=== PATIENT | male | born 1985 | race African-American/Black ===

== ENCOUNTER 2021-08-12 14:56 | Emergency (ER) | payer MEDICAID ==
[~2021-08-12] VITALS: Ht 170.2 cm; Wt 62.0 kg
[2021-08-12] MEDS ORDERED: HYDROCODONE/ACETAMINOPHEN 5/325MG TABLET PO ONE (15:45)
[2021-08-12] MEDS ORDERED: DIAZEPAM 5 MG TABLET PO NR (22:15)
[2021-08-12] MEDS ORDERED: MORPHINE SULFATE 2 MG/ML CPJ (NOT FOR IM USE) IV NR (22:15)
[2021-08-13] MEDS ORDERED: MORPHINE SULFATE 4 MG/ML CPJ (NOT FOR IM USE) IV ONE (06:00)
[2021-08-13 12:03] LABS: HEMATOCRIT. 35.5 % (42.0-52.0); HEMOGLOBIN. 11.9 g/dL (14.0-18.0); MEAN CORPUSCULAR HEMOGLOBIN 36.4 pg (28.0-32.0); MEAN CORPUSCULAR VOLUME 108.6 fL (80.0-94.0); MEAN PLATELET VOLUME 7.4 fl (7.4-10.4); PLATELET 269 x1000/uL (130-400); RED BLOOD CELL COUNT 3.27 mill/uL (4.7-6.1); RED CELL DISTRIBUTION WIDTH 16.2 % (11.6-14.6)
[2021-08-13 12:09] LABS: CHLORIDE 104 mEq/L (98-107)
[2021-08-13 13:02] LABS: PLATELET ESTIMATE NORMAL
[2021-08-13 13:12] VITALS: BP 144/99
== END 2021-08-13 13:37 | disposition short-term general hospital (02) ==
LOC: ER 14:56
DX: S02.69XA Fracture of mandible of other specified site, initial encounter for closed fracture (principal); S00.83XA Contusion of other part of head, initial encounter; F32.9 Major depressive disorder, single episode, unspecified; Z20.822 Contact with and (suspected) exposure to COVID-19; Z98.890 Other specified postprocedural states; W01.0XXA Fall on same level from slipping, tripping and stumbling without subsequent striking against object, initial encounter; Y93.89 Activity, other specified; Y92.511 Restaurant or cafe as the place of occurrence of the external cause
CPT/HCPCS: 36415; 70486; 73060; 73110; 80053; 85025; 87426; 96374; 96376; 99285; J2270